=== PATIENT | male | born 1970 | race African-American/Black ===

== ENCOUNTER 2021-12-18 21:02 | Emergency (ER) | payer OTHER ==
[2021-12-18 21:06] VITALS: BP 144/82; PULSE 88; RESP 18; TEMP 98.2; BMI 28.2
[2021-12-18] MEDS ORDERED: CYCLOBENZAPRINE HCL 10 MG TABLET (FP) PO ONE (22:19)
[2021-12-18] MEDS ORDERED: CYCLOBENZAPRINE HCL 10 MG TABLET (FP) ONE (22:22)
== END 2021-12-19 00:18 | disposition home or self-care (01) ==
LOC: JER 21:02 → JERFT 21:02 → JER 12-19 00:18
DX: M54.6 Pain in thoracic spine (principal)
CPT/HCPCS: 71111-TC-FY; 99284-25